=== PATIENT | female | born 1985 | race Caucasian/White ===

== ENCOUNTER → 2017-04-08 | Outpatient (CLI) | payer BC ==
--- NOTE | 2017-04-08 14:40 | MG ---
Examination: Bilateral diagnostic mammogram and left breast ultrasound. Clinical history: Left breast lump. Technique: Multiple digital images of both breasts were obtained. Targeted left breast ultrasound was also obtained evaluating the palpable area of concern in the retroareolar region of the left breast. Comparison: None available. Baseline mammogram. Findings: The breasts are composed of scattered fibroglandular densities. Benign-appearing calcifications are n oted in the breasts bilaterally. No mammographic abnormality is evident in the area of palpable concern in the retroareolar region of the left breast. No suspicious mass, area of architectural distortion or suspicious cluster of microcalcifications is noted. Targeted left breast ultrasound evaluating the retroareolar region of the left breast reveals no sono graphic abnormality. No suspicious cystic or solid mass is noted. Impression: 1. No mammographic or sonographic evidence of malignancy. BI-RADS category 2-benign findings. Recommend routine annual screening mammogram to start at 40 years of age, or earlier, if clinically i ndicated. Diagnostic CAD was utilized and reviewed. * 0 (ZERO) - ASSESSMENT INCOMPLETE; ADDITIONAL IMAGING IS NEEDED. * 0C - ASSESSMENT INCOMPLETE, NEEDS ADDITIONAL IMAGING EVALUATION AND/OR PRIOR MAMMOGRAMS FOR COMPARI SON. * 1/1 (ONE) - NEGATIVE. * 2/II (TWO) - BENIGN FINDINGS. * 3/III (THREE) - PROBABLY BENIGN FINDING; SHORT INTERVAL FOLLOW-UP SUGGESTED. * 4/IV (FOUR) - SUSPICIOUS ABNORMALITY; BIOPSY SHOULD BE CONSIDERED. * 5/V - HIGHLY SUSPICIOUS OF MALIGNANCY; BIOPSY SHOULD BE PERFORMED. * 6/ - KNOWN BIOPSY PROVEN MALIGNANCY-APPROPRIATE ACTION SHOULD BE TAKEN. A NEGATIVE X-RAY REPORT SHOULD NOT DELAY BIOPSY IF A DOMINANT OR CLINICALLY SUSPICIOUS MASS IS PRESENT; 4 TO 8 PERCENT OF CANCERS ARE NOT IDENTIFIED BY X-RAY. A NEGATIVE REPORT MAY REINFORCE THE CLINICAL IMPRESSION. ADENOSIS AND DENSE BREASTS MAY OBSCURE AN UNDERLYING NEOPLASM. Reported By:
== END ==
LOC: RAD 12:11
PROVIDERS: ATTEND Nurse Practitioner Family
DX: N63 Unspecified lump in breast (principal)
CPT/HCPCS: 76642; 77066